=== PATIENT | female | born 1990 | race Caucasian/White ===

== ENCOUNTER → 2018-04-29 | Emergency (ER) | payer OTHER ==
[~2018-04-29] VITALS: Ht 149.9 cm; Wt 68.0 kg
[~2018-04-29] MED LIST: KETO10TA2 PO; ZOFRAN4 MG PO
== END | disposition left against medical advice (07) ==
LOC: ER 17:57
DX: Z53.20 Procedure and treatment not carried out because of patient's decision for unspecified reasons (principal)

== ENCOUNTER → 2018-05-28 | Emergency (ER) | payer OTHER ==
[~2018-05-28] VITALS: Ht 149.9 cm; Wt 68.0 kg
[~2018-05-28] MED LIST changes: +OBSTETRIX DHA1 EACH
== END | disposition home or self-care (01) ==
LOC: ER 10:29
DX: O26.891 Other specified pregnancy related conditions, first trimester (principal); R51 Headache; J34.89 Other specified disorders of nose and nasal sinuses; Z34.01 Encounter for supervision of normal first pregnancy, first trimester

== ENCOUNTER 2018-08-07 14:40 | Inpatient (IN) | payer OTHER ==
[~2018-08-07] VITALS: Ht 149.9 cm; Wt 65.8 kg
[2018-08-07] MEDS ORDERED: METFORMIN HCL500 MG PO (15:52)
== END 2018-08-08 11:07 | disposition home or self-care (01) | DRG 833 ==
LOC: LDR 14:40
PROVIDERS: ADMIT Obstetrics & Gynecology
PROC: BW40ZZZ Ultrasonography of Abdomen (ICD-10-PCS; principal; 2018-08-07)
PROC: BY4CZZZ Ultrasonography of Second Trimester, Single Fetus (ICD-10-PCS; 2018-08-07)
PROC: 4A1HXCZ Monitoring of Products of Conception, Cardiac Rate, External Approach (ICD-10-PCS; 2018-08-07)
DX: O26.892 Other specified pregnancy related conditions, second trimester (principal); R10.2 Pelvic and perineal pain; Z34.82 Encounter for supervision of other normal pregnancy, second trimester

== ENCOUNTER 2018-08-25 09:59 | Inpatient (IN) | payer OTHER ==
[~2018-08-25] VITALS: Ht 149.9 cm; Wt 66.7 kg
[~2018-08-25 09:59] MED LIST changes: +METFORMIN HCL500 MG PO; -OBSTETRIX DHA1 EACH; +OBSTETRIX DHA1 EACH PO
== END 2018-08-28 11:39 | disposition home or self-care (01) | DRG 833 ==
LOC: LDR 09:59 → OB/GYN 08-27 09:40
PROVIDERS: ADMIT Obstetrics & Gynecology Maternal & Fetal Medicine
PROC: 3E0F7GC Introduction of Other Therapeutic Substance into Respiratory Tract, Via Natural or Artificial Opening (ICD-10-PCS; principal; 2018-08-25)
PROC: 4A033R1 Measurement of Arterial Saturation, Peripheral, Percutaneous Approach (ICD-10-PCS; 2018-08-25)
PROC: 4A1HXCZ Monitoring of Products of Conception, Cardiac Rate, External Approach (ICD-10-PCS; 2018-08-25)
DX: O26.892 Other specified pregnancy related conditions, second trimester (principal); J10.1 Influenza due to other identified influenza virus with other respiratory manifestations; O34.82 Maternal care for other abnormalities of pelvic organs, second trimester; Z34.82 Encounter for supervision of other normal pregnancy, second trimester

== ENCOUNTER 2018-09-14 14:11 | Emergency (ER) | payer OTHER ==
[~2018-09-14] VITALS: Ht 152.4 cm; Wt 64.9 kg
== END 2018-09-14 21:23 | disposition home or self-care (01) ==
LOC: ER 14:11
DX: O26.892 Other specified pregnancy related conditions, second trimester (principal); K52.9 Noninfective gastroenteritis and colitis, unspecified; Z34.82 Encounter for supervision of other normal pregnancy, second trimester

== ENCOUNTER 2018-11-14 11:21 | Outpatient (CLI) | payer OTHER | END 2018-11-14 11:47 | disposition home or self-care (01) | LOC: NST 11:21 | DX: Z34.83 Encounter for supervision of other normal pregnancy, third trimester (principal) ==

== ENCOUNTER 2018-11-30 08:37 | Outpatient (CLI) | payer OTHER | END 2018-11-30 10:09 | disposition home or self-care (01) | LOC: NST 08:37 | DX: Z34.83 Encounter for supervision of other normal pregnancy, third trimester (principal) ==

== ENCOUNTER 2018-11-30 11:45 | Inpatient (IN) | payer OTHER ==
[~2018-11-30] VITALS: Ht 152.4 cm; Wt 3.2 kg
[2018-12-23] MEDS ORDERED: KETOROLAC TROME10 MG PO (10:44)
[2018-12-23] MEDS ORDERED: OXYC1TAB9 PO (10:45)
== END 2018-12-23 13:46 | disposition home or self-care (01) | DRG 788 ==
LOC: OB/GYN 12-07 13:45 → O/R 12-20 05:55 → OB/GYN 12-20 07:00
PROVIDERS: ADMIT Obstetrics & Gynecology
PROC: 4A1HXCZ Monitoring of Products of Conception, Cardiac Rate, External Approach (ICD-10-PCS; 2018-12-20)
PROC: 10D00Z1 Extraction of Products of Conception, Low, Open Approach (ICD-10-PCS; principal; 2018-12-20 07:00)
DX: O82 Encounter for cesarean delivery without indication (principal); O24.420 Gestational diabetes mellitus in childbirth, diet controlled; Z3A.39 39 weeks gestation of pregnancy; Z37.0 Single live birth

== ENCOUNTER → 2018-12-07 | Outpatient (CLI) | payer OTHER | END | disposition home or self-care (01) | LOC: NUCLEAR 13:17 | DX: I82.442 Acute embolism and thrombosis of left tibial vein (principal); I82.401 Acute embolism and thrombosis of unspecified deep veins of right lower extremity ==

== ENCOUNTER 2019-10-10 05:43 | Day surgery (SDC) | payer OTHER ==
[~2019-10-10 05:43] MED LIST changes: +KETOROLAC TROME10 MG PO; +OXYC1TAB9 PO
[2019-10-10] MEDS ORDERED: NEURONTIN600 M1 PO (11:42)
[2019-10-10] MEDS ORDERED: COLACE100 MG PO (11:43)
[2019-10-10] MEDS ORDERED: PERCOCET 5-3251 EACH PO (11:43)
== END 2019-10-10 15:30 | disposition home or self-care (01) ==
LOC: CIR.AMB 05:43
PROVIDERS: ATTEND Surgery
DX: K42.0 Umbilical hernia with obstruction, without gangrene (principal)

== ENCOUNTER 2019-11-01 20:25 | Emergency (ER) | payer OTHER ==
[~2019-11-01] VITALS: Ht 149.9 cm; Wt 65.8 kg
[~2019-11-01 20:25] MED LIST changes: +COLACE100 MG PO; +NEURONTIN600 M1 PO; +PERCOCET 5-3251 EACH PO
[2019-11-01] MEDS ORDERED: NORFLEX100MG PO (21:16)
[2019-11-01] MEDS ORDERED: DICLOFENAC SODI75 MG PO (21:16)
== END 2019-11-01 21:40 | disposition home or self-care (01) ==
LOC: ER 20:25
DX: S13.8XXA Sprain of joints and ligaments of other parts of neck, initial encounter (principal); M54.2 Cervicalgia; M62.838 Other muscle spasm; V43.92XA Unspecified car occupant injured in collision with other type car in traffic accident, initial encounter; Y93.89 Activity, other specified; Y92.488 Other paved roadways as the place of occurrence of the external cause; Y99.8 Other external cause status